=== PATIENT | female | born 1975 | race Caucasian/White ===

== ENCOUNTER 2018-08-26 08:34 | Emergency (ER) | payer MEDICAID ==
[~2018-08-26] VITALS: Ht 160 cm; Wt 90.7 kg
[2018-08-26 08:45] VITALS: BP_SYST 125
[2018-08-26 09:03] VITALS: BP_SYST 125
== END 2018-08-26 09:03 | disposition home or self-care (01) ==
LOC: SED 08:34
DX: J06.9 Acute upper respiratory infection, unspecified (principal); R03.0 Elevated blood-pressure reading, without diagnosis of hypertension; Z88.6 Allergy status to analgesic agent; Z98.51 Tubal ligation status
CPT/HCPCS: 99283; J7030

== ENCOUNTER 2018-08-26 16:52 | Emergency (ER) | payer MEDICAID ==
[~2018-08-26] VITALS: Ht 160 cm; Wt 86.2 kg
[2018-08-26 17:04] VITALS: BP_SYST 159
[2018-08-26] MEDS ORDERED: NACL 0.9% 1,000 ML IV ONE (17:20)
[2018-08-26] MEDS ORDERED: KETOROLAC TROMETHAMINE 30 MG VIAL IVP ONE (17:30)
[2018-08-26 17:32] LABS: COLOR,URINE YELLOW (YELLOW)
[2018-08-26 17:33] LABS: BILIRUBIN,URINE NEGATIVE (NEGATIVE); BLOOD, URINE 3+ (NEGATIVE); CLARITY/URINE SILGHTLY CLOUDY (CLEAR); GLUCOSE,URINE NEGATIVE (NEGATIVE); KETONES,URINE NEGATIVE (NEGATIVE); LEUKOCYTE ESTERASE ,URINE NEGATIVE (NEGATIVE); NITRITE, URINE NEGATIVE (NEGATIVE); PH,URINE 6.5 (5.0-8.0); PROTEIN URINE TRACE (NEGATIVE); UROBILINOGEN,URINE 0.2 (0.2-1.0)
[2018-08-26 17:42] LABS: BACTERIA,URINE FEW /HPF (None Seen); RBC,URINE 20-50 /HPF (0-3); WBC,URINE 0-3 /HPF (0-3)
[2018-08-26 17:51] LABS: RED BLOOD CELL COUNT(AUTO) 4.53 MIL/uL (4.2-6.2); WHITE BLOOD COUNT (AUTO) 7.2 K/uL (4.8-10.8)
[2018-08-26 17:52] LABS: HEMATOCRIT 38.1 % (36-48); HEMOGLOBIN 12.8 g/dL (12.0-16.0); MEAN CORPUSCULAR HEMOGLOBIN 28 pg (27-31); MEAN CORPUSCULAR HGB CONC 34 % (32-36); MEAN CORPUSCULAR VOLUME 84 fL (79.0-98.0); MONOCYTES % (AUTO) 8.1 % (1.7-9.3); NEUTROPHILS % (AUTO) 65.3 % (40.0-70.0); PLATELET COUNT (AUTO) 264 K/uL (130-430); RED CELL DISTRIBUTION WIDTH 12.5 % (9.0-15.0)
[2018-08-26 17:53] LABS: BASOPHILS # (AUTO) 0.1 K/uL (0.0-0.2); BASOPHILS % (AUTO) 0.7 % (0.0-2.0); EOSINOPHILS # (AUTO) 0.1 K/uL (0.0-0.4); EOSINOPHILS % (AUTO) 0.9 % (0.0-4.0); LYMPHOCYTES # (AUTO) 1.8 K/uL (1.0-5.5); MONOCYTES # (AUTO) 0.6 K/uL (0.0-1.0); NEUTROPHILS # (AUTO) 4.6 K/uL (1.8-7.7)
[2018-08-26 18:19] LABS: POTASSIUM 3.5 mmol/L (3.5-5.1)
[2018-08-26 18:20] LABS: ALBUMIN 3.6 g/dL (3.4-4.8); CALCIUM 9.4 mg/dL (8.4-11.0); CREATININE 1.09 mg/dL (0.55-1.30); TOTAL BILIRUBIN 0.4 mg/dL (0.0-1.0)
== END 2018-08-26 19:36 | disposition home or self-care (01) ==
LOC: SED 16:52
DX: N20.0 Calculus of kidney (principal); R03.0 Elevated blood-pressure reading, without diagnosis of hypertension; Z98.51 Tubal ligation status; Z88.6 Allergy status to analgesic agent
CPT/HCPCS: 36415; 74176; 80053; 81000; 81025; 85025; 96374; 99284; J1885; J7030

== ENCOUNTER 2022-10-21 09:46 | Emergency (ER) | payer MEDICAID ==
[~2022-10-21] VITALS: Ht 157.5 cm; Wt 90.7 kg
[2022-10-21 10:06] VITALS: BP_SYST 130
[2022-10-21] MEDS ORDERED: KETOROLAC TROMETHAMINE 60 MG/2 ML VIAL IM ONE (10:15)
[2022-10-21] MEDS ORDERED: HYDROcodone/ACETAMIN 10-325 MG TAB PO ONE (10:15)
[2022-10-21] MEDS ORDERED: SOM350 PO (11:01)
[2022-10-21] MEDS ORDERED: IBUP-1969 PO (11:01)
[2022-10-21 11:30] VITALS: BP_SYST 124
== END 2022-10-21 11:31 | disposition home or self-care (01) ==
LOC: SED 09:46
DX: M54.50 Low back pain, unspecified (principal); M79.652 Pain in left thigh; Z88.6 Allergy status to analgesic agent; Z79.899 Other long term (current) drug therapy
CPT/HCPCS: 99283; 72100; 81002; 81025; 96372; J1885